=== PATIENT | female | born 1990 | race Caucasian/White ===

== ENCOUNTER 2020-08-29 14:25 | Emergency (ER) | payer MEDICAID, SELFPAY ==
[~2020-08-29] VITALS: Ht 149.9 cm; Wt 74.8 kg
--- NOTE | 2020-08-29 14:52 | NUR ---
[facility].
[2020-08-29 14:55] VITALS: BP 105/52
--- NOTE | 2020-08-29 15:03 | NUR ---
guitar technician at pt bedside.
[2020-08-29 15:19] LABS: BASOPHILS # (AUTO) 0.1 K/uL (0.00-0.22); BASOPHILS % (AUTO) 0.6 % (0.0-2.0); EOSINOPHILS # (AUTO) 0.2 K/uL (0-0.4); EOSINOPHILS % (AUTO) 1.7 % (0.0-4.0); HEMATOCRIT 36.8 % (36-48); HEMOGLOBIN 12.3 g/dL (12.0-16.0); LYMPHOCYTES % (AUTO) 20.6 % (20.5-51.1); MEAN CORPUSCULAR HEMOGLOBIN 32 pg (27-31); MEAN CORPUSCULAR HGB CONC 34 g/dL (33-37); MEAN CORPUSCULAR VOLUME 94.1 fL (80-94); MONOCYTES # (AUTO) 0.7 K/uL (0.8-1.0); NEUTROPHILS # (AUTO) 6.7 K/uL (1.8-7.7); NEUTROPHILS % (AUTO) 70.1 % (42.2-75.2); PLATELET COUNT (AUTO) 193 K/uL (140-450); RED BLOOD CELL COUNT(AUTO) 3.91 MIL/uL (4.20-5.40); RED CELL DISTRIBUTION WIDTH 12.9 % (11.6-13.7); WHITE BLOOD COUNT (AUTO) 9.5 K/uL (4.8-10.8)
[2020-08-29 15:36] LABS: ALBUMIN 3.4 g/dL (3.4-5.0); ASPARTATE AMINOTRANSFERASE 14 U/L (15-37); CHLORIDE 102 mmol/L (98-107); CREATININE 0.6 mg/dL (0.6-1.3); GFR ARICAN-AMERICAN 149 mL/min (>90); GLUCOSE 89 mg/dL (74-106); POTASSIUM 3.6 mmol/L (3.5-5.1); SODIUM SERUM 137 mmol/L (136-145); TOTAL BILIRUBIN 0.3 mg/dL (0.0-1.0); UREA NITROGEN, BLOOD 14 mg/dL (7-18)
[2020-08-29 15:42] LABS: ANION GAP 8.4 (8-16); CARBON DIOXIDE 30.2 mmol/L (21-32)
--- NOTE | 2020-08-29 16:15 | NUR ---
Spoke with family for pt updates. Family told that MD is unable to provide examintation based on requests of family members. Pt is on a 5150 and will be evaluated based on psych evaluation at MD discretion.
--- NOTE | 2020-08-29 18:00 | NUR ---
still currently being held by [facility] in [facility]. no bed placement as of now. pt is stable.
[2020-08-29 19:03] LABS: APPEARANCE,URINE HAZY (CLEAR); BILIRUBIN,URINE NEGATIVE (NEGATIVE); BLOOD, URINE NEGATIVE (NEGATIVE); COLOR,URINE YELLOW (YELLOW); LEUKOCYTE ESTERASE ,URINE NEGATIVE (NEGATIVE); NITRITE, URINE POSITIVE (NEGATIVE); UGLUCOSE NEGATIVE (NEGATIVE)
[2020-08-29 19:16] LABS: BARBITURATE, URINE NEGATIVE ng/ml (NEG <=200); BENZODIAZEPINE, URINE NEGATIVE ng/mL (NEG <=200); CANNABINOID, URINE NEGATIVE ng/mL (NEG <=50); COCAINE, URINE NEGATIVE ng/mL (NEG <=300); OPIATE, URINE NEGATIVE ng/mL (NEG <=2000); PHENCYCLIDINE SCREEN,URINE NEGATIVE ng/mL (NEG <=25)
--- NOTE | 2020-08-29 20:00 | NUR ---
pt placed on bed 14. laid down and went straight to sleep. no needs at this time.
--- NOTE | 2020-08-29 20:50 | NUR ---
pt attempted to elope out of the hospital. brought back by [employer] and reoriented back to bed. states " i wanna go home. "
--- NOTE | 2020-08-29 21:42 | NUR ---
given juice and sandwich and dinner. no needs at this time.
--- NOTE | 2020-08-29 22:00 | NUR ---
labs drawn. MANNY swab and PCR swab collected via the CREDIT OFFICER route.
--- NOTE | 2020-08-30 | NUR ---
no needs at this time. pt asleep in bed.
[2020-08-30] MEDS ORDERED: ACETAMINOPHEN EXTRA STRENGTH 500 MG TAB ONE (01:17)
[2020-08-30] MEDS ORDERED: ACETAMINOPHEN EXTRA STRENGTH 500 MG TAB PO ONE (01:20)
--- NOTE | 2020-08-30 02:00 | NUR ---
pt asleep. symmetrical chest rise and fall. no further needs at this time.
--- NOTE | 2020-08-30 08:38 | NUR ---
The patient's mother, Haily Chatman, will product picker the patient upon discharge. [phone]
--- NOTE | 2020-08-30 10:12 | NUR ---
Patient resting with eyes closed, visible rise and fall of the chest.
--- NOTE | 2020-08-30 13:18 | NUR ---
Pt arousable to voice, denies pain at this time. VSS will continue to monitor
--- NOTE | 2020-08-30 14:06 | NUR ---
[facility] has received packet. Notified ER to psooibly apply presumptive Medi-Kavon. Will begin placement.
--- NOTE | 2020-08-30 14:16 | NUR ---
Packet referred to: [facility]
--- NOTE | 2020-08-30 17:16 | NUR ---
Patient refusing to get into bed stating that she wants to leave. Able to be redirected into bed at this time.
--- NOTE | 2020-08-30 21:00 | NUR ---
Patient to be transferred to [facility]. Is being transferred due to [facility] ADMISSION. Receiving facility has accepting physician and available space. ER physician has signed transfer form. Patient or responsible constitution party has agreed to transfer and signed form. Patient belongings inventoried and will be sent with patient. Copy of nursing notes, lab reports, EKG, Physicians Orders and X-rays to be sent with patient. Report called to KYLEE BLEVINS at receiving facility. [facility] ambulance service has been called for transfer. ETA AT [id number].
[2020-08-30 21:40] VITALS: BP 119/73
--- NOTE | 2020-08-30 21:40 | NUR ---
Patient Tranfers to outside Facility Physician: DR. HOLGUIN Location:[facility] 111
== END 2020-08-30 21:40 ==
LOC: MED 14:25
DX: R45.851 Suicidal ideations (principal); Z20.828 Contact with and (suspected) exposure to other viral communicable diseases; R45.1 Restlessness and agitation
CPT/HCPCS: 80053; 80305; 81003; 81025; 85025; 87426; 99285; G0482; U0003

== ENCOUNTER 2020-09-03 16:22 | Emergency (ER) | payer MEDICAID, SELFPAY ==
[~2020-09-03] VITALS: Ht 149.9 cm; Wt 59.0 kg
[2020-09-03 16:37] VITALS: BP 112/64
--- NOTE | 2020-09-03 16:40 | NUR ---
PT BIBA FOR HOLD PLACED BY [facility] . PER EMS PT WAS BECOMING INCREASINGLY AGITATED AFTER BEING RELEASED FROM PSYCH FACILITY, THEN MADE THREATS TO FAMILY MEMBERS. PRECAUTIONS IN PLACE, SITTER AT BEDSIDE. PT ALERT AND AWAKE, BREATHING EVEN AND UNLABORED, SKIN WARM AND DRY. BED IN LOWEST POSITION, LOCKED, BED RAIL UPX2. PMH - DEPRESSION, BIPOLAR ALLERGIES - NKA
[2020-09-03] MEDS ORDERED: ZIPRASIDONE MESYLATE 20 MG/ML VIAL IM ONE ×2 (16:55)
[2020-09-03] MEDS ORDERED: LORazepam 2 MG/ML VIAL IM ONE (16:55)
[2020-09-03 17:06] LABS: BASOPHILS % (AUTO) 0.5 % (0.0-2.0); EOSINOPHILS # (AUTO) 0.1 K/uL (0-0.4); EOSINOPHILS % (AUTO) 1.6 % (0.0-4.0); HEMATOCRIT 35.1 % (36-48); HEMOGLOBIN 11.8 g/dL (12.0-16.0); LYMPHOCYTES # (AUTO) 1.7 K/uL (2.5-16.5); LYMPHOCYTES % (AUTO) 21.6 % (20.5-51.1); MEAN CORPUSCULAR HEMOGLOBIN 31 pg (27-31); MEAN CORPUSCULAR HGB CONC 34 g/dL (33-37); MEAN CORPUSCULAR VOLUME 93.4 fL (80-94); MONOCYTES # (AUTO) 0.6 K/uL (0.8-1.0); MONOCYTES % (AUTO) 7.8 % (1.7-9.3); NEUTROPHILS # (AUTO) 5.5 K/uL (1.8-7.7); NEUTROPHILS % (AUTO) 68.5 % (42.2-75.2); PLATELET COUNT (AUTO) 192 K/uL (140-450); RED BLOOD CELL COUNT(AUTO) 3.75 MIL/uL (4.20-5.40); RED CELL DISTRIBUTION WIDTH 12.9 % (11.6-13.7)
[2020-09-03 17:21] LABS: ALBUMIN 3.6 g/dL (3.4-5.0); ANION GAP 10.1 (8-16); ASPARTATE AMINOTRANSFERASE 15 U/L (15-37); CARBON DIOXIDE 29.1 mmol/L (21-32); CHLORIDE 108 mmol/L (98-107); CREATININE 0.7 mg/dL (0.6-1.3); GFR ARICAN-AMERICAN 125 mL/min (>90); GLUCOSE 108 mg/dL (74-106); POTASSIUM 4.2 mmol/L (3.5-5.1); SODIUM SERUM 143 mmol/L (136-145); TOTAL BILIRUBIN 0.2 mg/dL (0.0-1.0); UREA NITROGEN, BLOOD 14 mg/dL (7-18)
[2020-09-03 17:28] LABS: ACETAMINOPHEN < 0.5 ug/ml (10-30); SALICYLATE < 2.8 mg/dL (2.8-20.0)
--- NOTE | 2020-09-03 19:22 | NUR ---
hand off report given to CN for continuation of nursingc are
--- NOTE | 2020-09-03 19:34 | NUR ---
REPORT GIVEN TO GEN HERZOG. TRANSFER OF CARE AT THIS TIME.
--- NOTE | 2020-09-03 20:00 | NUR ---
RESTING ON GURNEY WITH EYES CLOSED. RESPIRATIONS REGULAR AND UNLABORED. PT REMAINS IN LINE OF SIGHT
[2020-09-03 20:58] LABS: APPEARANCE,URINE CLEAR (CLEAR); BILIRUBIN,URINE NEGATIVE (NEGATIVE); BLOOD, URINE NEGATIVE (NEGATIVE); COLOR,URINE YELLOW (YELLOW); LEUKOCYTE ESTERASE ,URINE NEGATIVE (NEGATIVE); NITRITE, URINE NEGATIVE (NEGATIVE); UGLUCOSE NEGATIVE (NEGATIVE)
[2020-09-03 21:09] LABS: BARBITURATE, URINE NEGATIVE ng/ml (NEG <=200); BENZODIAZEPINE, URINE POSITIVE ng/mL (NEG <=200); CANNABINOID, URINE NEGATIVE ng/mL (NEG <=50); COCAINE, URINE NEGATIVE ng/mL (NEG <=300); OPIATE, URINE NEGATIVE ng/mL (NEG <=2000); PHENCYCLIDINE SCREEN,URINE NEGATIVE ng/mL (NEG <=25)
--- NOTE | 2020-09-03 23:40 | NUR ---
CONTINUES TO REST WITH EYES CLOSED, RESPIRATIONS REGULAR AND UNLABORED.
--- NOTE | 2020-09-04 00:35 | NUR ---
AWAKE, AMBULATED TO , VOIDED THEN RETURNED TO [facility]. VOICES NO COMPLAINTS
--- NOTE | 2020-09-04 04:45 | NUR ---
AWAKE, AMBULATED TO THEN BACK TO [facility], RESTING WITH EYES CLOSED
--- NOTE | 2020-09-04 06:33 | NUR ---
AWAKE, ATTEMPTING TO AMBULATE OUTDOORS
--- NOTE | 2020-09-04 07:00 | NUR ---
Report received from GEN Davis. Transfer of care at this time.
--- NOTE | 2020-09-04 07:16 | NUR ---
Pt calm cooperative, no signs of increased agitation. Per pt request juice provided. Will continue to monitor.
--- NOTE | 2020-09-04 07:31 | NUR ---
Pt becoming increasingly agitated, ERMD made aware.
[2020-09-04] MEDS ORDERED: LORazepam 2 MG/ML VIAL ONE (07:37)
[2020-09-04] MEDS ORDERED: HALOPERIDOL IM 5 MG/ML VIAL ONE (07:37)
[2020-09-04] MEDS ORDERED: diphenhydrAMINE 50 MG/ML VIAL ONE (07:38)
[2020-09-04] MEDS ORDERED: LORazepam 2 MG/ML VIAL IM ONE (07:40)
[2020-09-04] MEDS ORDERED: diphenhydrAMINE 50 MG/ML VIAL IM ONE (07:40)
--- NOTE | 2020-09-04 07:44 | NUR ---
Pt cooperative to change into clean gown, provided warm blanket.
[2020-09-04] MEDS ORDERED: COMMUNICATION ORDER MC STA (07:45)
--- NOTE | 2020-09-04 07:46 | NUR ---
5mg IM Haldol given to patient in left vastus lateralis. Pt tolerated well.
--- NOTE | 2020-09-04 08:46 | NUR ---
Performed JHONATAN KAPOOR, walked to lab.
--- NOTE | 2020-09-04 09:34 | NUR ---
Received intake information. Confirmed with [facility] intake was received. Called back to ER and spoke with Josef. PCR Covjose will need to be ordered for placement to any psychiatric holding facility. She will advise and once resulted we can proceed with placement
--- NOTE | 2020-09-04 10:46 | NUR ---
Pt resting, visible equal rise and fall of chest, will continue to monitor.
--- NOTE | 2020-09-04 12:20 | NUR ---
Pt calm and cooperative laying in right side, VSS, will continue to monitor.
--- NOTE | 2020-09-04 14:34 | NUR ---
Pt sleeping on right side, will continue to monitor.
--- NOTE | 2020-09-04 16:03 | NUR ---
Pt resting with HOB lowered for comfort, pt calm and cooperative, VSS, will continue to monitor.
--- NOTE | 2020-09-04 18:05 | NUR ---
Pt sleeping, HOB elevated, VSS, will continue to monitor.
--- NOTE | 2020-09-04 18:38 | NUR ---
Pt sitting up eating dinner tray, calm and cooperative. Will continue to monitor.
--- NOTE | 2020-09-04 19:24 | NUR ---
RESTING QUIETLY IN NAD
--- NOTE | 2020-09-04 22:00 | NUR ---
AWAKE, SLIGHTLY RESTLESS JUICE GIVEN. WARM BLANKET GIVEN.
--- NOTE | 2020-09-05 | NUR ---
RESTING IN BED WITH EYES CLOSED. RESPIRATIONS REGULAR AND UNLABORED
--- NOTE | 2020-09-05 04:00 | NUR ---
AWAKE, AMBULATED TO BR WITH STEADY GAIT.
--- NOTE | 2020-09-05 05:39 | NUR ---
SITTING UP IN BED, EATING CRACKERS
--- NOTE | 2020-09-05 06:09 | NUR ---
AWAKE, AMBULATED TO BR WITH STEADY GAIT
--- NOTE | 2020-09-05 08:06 | NUR ---
PATIENT HAS BEEN SCREENED AND CATEGORIZED LOW NUTRITION RISK. PATIENT WILL BE SEEN WITHIN 7 DAYS OF ADMISSION. 09/11/[address]
--- NOTE | 2020-09-05 09:48 | NUR ---
DR ARTHUR AT BEDSIDE EVALUATING PT
[2020-09-05] MEDS: OLANZapine 5 MG TAB PO SCH ×2 (10:52→21:42)
--- NOTE | 2020-09-05 11:48 | NUR ---
Pt sitting in bed, calm and cooperative, will continue to monitor.
--- NOTE | 2020-09-05 14:04 | NUR ---
Pt sleeping on left side with HOB elevated, bed locked and in lowest position. Will continue to monitor.
--- NOTE | 2020-09-05 16:00 | NUR ---
PT IS SLEEPING IN BED WITH HOB ELEVATED. NORMAL RESPIRATIONS OBSERVED.
--- NOTE | 2020-09-05 17:23 | NUR ---
Pt is sitting up in bed, crackers and juice provided, calm and cooperative, VSS, will continue to monitor.
--- NOTE | 2020-09-05 18:18 | NUR ---
PT LAYING IN BED. V/S TAKEN AND PT STATED LEGS ARE IN PAIN 10/[address] STEVENS MADE AWARE
[2020-09-05] MEDS ORDERED: ACETAMINOPHEN 325 MG TAB PO ONE (18:30)
--- NOTE | 2020-09-05 19:16 | NUR ---
REPORT GIVEN TO GEN HERZOG. TRANSFER OF CARE AT THIS TIME.
--- NOTE | 2020-09-05 20:00 | NUR ---
RESTING IN BED WITH EYES CLOSED. RESPIRATIONS REGULAT AND UNLABORED.
--- NOTE | 2020-09-05 22:00 | NUR ---
AWAKE. "I'M HUNGRY". SANDWICH GIVEN
--- NOTE | 2020-09-06 02:00 | NUR ---
Patient appears to be resting comfortably in bed. Vital Signs within normal limits. Respirations even and unlabored.
--- NOTE | 2020-09-06 06:00 | NUR ---
IS AWAKE, AMBULATED TO THEN BACK TO [facility]. APEARS IN NAD
--- NOTE | 2020-09-06 07:52 | NUR ---
Received report. [facility] monitoring for PCR Covid results.
[2020-09-06] MEDS ORDERED: ACETAMINOPHEN 325 MG TAB PO ONE (08:15)
[2020-09-06] MEDS: OLANZapine 5 MG TAB PO SCH (08:17)
--- NOTE | 2020-09-06 09:10 | NUR ---
PT QUIETLY COLORING VSS, IN NAD. PT ATE BREAKFAST 100% AND PROCEEDED TO DO MORNING CARE HERSELF WITH TOOTHBRUSH, BRUSH, AND NEW GOWNS PROVIDED. PT HAS NO NEEDS AT THIS TIME. WILL CTM
--- NOTE | 2020-09-06 12:30 | NUR ---
[facility] has received PCR Covid results as well as updated H and P. Will begin placement.
--- NOTE | 2020-09-06 13:03 | NUR ---
Packet referred to the following facilities: [facility]
--- NOTE | 2020-09-06 13:48 | NUR ---
Report given to Suzi RN at [facility]. ETA for pickup 1400
--- NOTE | 2020-09-06 14:19 | NUR ---
Informed patients mother Haily about transfer of patient to [facility].
--- NOTE | 2020-09-06 14:20 | NUR ---
Patient to be transferred to [facility]. Is being transferred due to higher level of care. Receiving facility has accepting physician and available space. ER physician has signed transfer form. Patient or responsible alliance party has agreed to transfer and signed form. Patient belongings inventoried and will be sent with patient. Copy of nursing notes, lab reports, EKG, Physicians Orders and X-rays to be sent with patient. Report called to GEN Archer at receiving facility. [facility] ambulance service has been called for transfer.
[2020-09-06 14:21] VITALS: BP 100/61
== END 2020-09-06 14:20 ==
LOC: MED 16:22 → EDBD 16:22 → MED 09-06 14:20
DX: R45.851 Suicidal ideations (principal); F29 Unspecified psychosis not due to a substance or known physiological condition; F79 Unspecified intellectual disabilities; F31.9 Bipolar disorder, unspecified; Z20.828 Contact with and (suspected) exposure to other viral communicable diseases
CPT/HCPCS: 36415; 80053; 80305; 81003; 81025; 85025; 87426; 96372; 99285; C1758; G0480; G0482; J1200; J1630; J2060; J3486; U0003

== ENCOUNTER 2020-09-13 17:57 | Emergency (ER) | payer MEDICAID ==
[~2020-09-13] VITALS: Ht 149.9 cm; Wt 56.7 kg
[2020-09-13 18:00] VITALS: BP 131/90
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
--- NOTE | 2020-09-13 18:42 | NUR ---
Patient taken to CT scan via wheelchair by tech.
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
[2020-09-13 19:09] VITALS: BP 131/90
== END 2020-09-13 19:05 | disposition home or self-care (01) ==
LOC: MED 17:57
DX: S06.0X9A Concussion with loss of consciousness of unspecified duration, initial encounter (principal); W22.01XA Walked into wall, initial encounter; Y93.89 Activity, other specified; Y92.89 Other specified places as the place of occurrence of the external cause; Y99.8 Other external cause status
CPT/HCPCS: 70450; 99284; 99285